=== PATIENT | female | born 1960 | race Caucasian/White ===

== ENCOUNTER 2017-12-07 10:02 | Day surgery (SDC) | payer BC ==
[2017-12-07] MEDS ORDERED: LIDOCAINE 2% MDV (20MG/ML) 20ML VIAL IV ONE (10:03)
[2017-12-07] MEDS ORDERED: PROPOFOL 10 MG/ML VIAL IV ONE (10:03)
--- NOTE | 2017-12-07 17:00 | Operative Note ---
DATE OF SURGERY: 12/07/2017 REFERRING PROVIDER: AVINASH Zabala PREOPERATIVE DIAGNOSIS: Personal history of polyps and irritable bowel syndrome. POSTOPERATIVE DIAGNOSIS: Include colon polyps. OPERATION: COLONOSCOPY with cold snare and cold forceps polypectomies. Preparation Quality: Excellent. Estimated Blood Loss: Minimal. Samples Obtained: Includes cecal polyp and transverse colon polyp. Complications: None apparent. PROCEDURE: After informed consent was obtained, the patient was placed in the left lateral decubitus position in the endoscopy suite, sedated and monitored by the Department of Anesthesia. Digital rectal exam was unremarkable. A well-lubricated PCF-180 colonoscope was inserted into the rectum and advanced to the cecum. The cecum revealed a 5 mm sessile polyp removed with a cold snare. Minimal bleeding was noted. The polyp was retrieved without difficulty. The remainder of the cecum and ascending colon were unremarkable. In the distal transverse colon, there was a diminutive polyp removed in a piecemeal fashion with a cold forceps. The remainder of the transverse colon, descending colon, sigmoid colon, and rectum were unremarkable. J-turn views of the anorectum were unremarkable. The endoscope was straightened, the rectal ampulla deflated and the endoscope was removed. RECOMMENDATIONS: Patient should resume her medications and diet. She will require repeat exam in 3 to 5 years pending tissue histology. As always, thank you for allowing me to participate in the health care of your patients. CC: AVINASH Zabala [facility]
== END 2017-12-07 11:30 | disposition home or self-care (01) ==
LOC: HOP 10:02
PROVIDERS: ATTEND Internal Medicine Gastroenterology
DX: K58.9 Irritable bowel syndrome, unspecified (principal); D12.0 Benign neoplasm of cecum; D12.3 Benign neoplasm of transverse colon